=== PATIENT | female | born 1960 | race Caucasian/White ===

== ENCOUNTER → 2017-03-19 | Outpatient (CLI) | payer OTHER ==
[2017-03-19 18:28] LABS: THYROID STIMULATING HORMONE 0.451 uIu/ml (0.300-4.500)
== END | disposition home or self-care (01) ==
LOC: C.LABMFLN 13:55
PROVIDERS: ATTEND Internal Medicine Endocrinology, Diabetes & Metabolism
DX: E04.1 Nontoxic single thyroid nodule (principal); R53.83 Other fatigue; R61 Generalized hyperhidrosis

== ENCOUNTER → 2018-06-02 | Outpatient (CLI) | payer BC, OTHER | END | disposition home or self-care (01) | LOC: C.LABMFLN 13:24 | PROVIDERS: ATTEND Internal Medicine Endocrinology, Diabetes & Metabolism | DX: E04.1 Nontoxic single thyroid nodule (principal); R53.83 Other fatigue ==

== ENCOUNTER 2023-08-27 09:37 | Observation (INO) ==
--- NOTE | 2023-08-25 10:25 | Anesthesiology Consultation ---
Date of Service August 25, 2023 Assessment & Plan (1) Encounter for pre-operative examination: Plan - Per noise tester on 08/25/2023: No known infectious disease contacts, current infectious disease symptoms in past 10 days or COVID positive test result in the past 90 days. Chart Review Chart Review: Acceptable Risk for Surgery and Patient NOT seen in Pre Admission Testing History Surgery Operation Date: 08/27/23 12:35 Proposed Procedures p Left Thyroid Lobectomy with Isthmusectomy - Kelvin Baez, DO Height/Weight Height: 5 ft 1 in Weight: 65.771 kg Allergies Allergy/AdvReac Type Severity Reaction Status Date / Time Sulfa (Sulfonamide AdvReac Mild upset Verified 08/25/23 09:01 Antibiotics) stomach Medications Home Medications Medication Instructions Recorded Confirmed Last Taken multivitamin 1 tab PO DAILY 05/09/22 08/25/23 Unknown Progesterone in Oil 7 drp PO HS 08/25/23 08/25/23 Unknown Raw Desiccated Thyroid Gran. 2 cap PO DAILY 08/25/23 08/25/23 Unknown Past Medical History Medical History (Updated 08/25/23 @ 10:23 by Baylee Jenkins PA-C) Hemopneumothorax on right 03/2022, due to horse riding accident; also had multiple rib fractures (all healed currently)>hospitalized for 2 days in the ICU [facility]>no current issues Thyroid nodule Past Family History Family History (Updated 01/19/23 @ 15:01 by Linn Mooney RN) Sister Lung cancer Brother Cancer Mother Heart disease Past Surgical History Surgical History Hx of section x4 Hx of colonoscopy S/P wisdom tooth extraction Social History Smoking Status: Never smoker Do You Dip or Chew Tobacco: No Hx Alcohol Use: Yes Alcohol type: wine alcohol intake frequency: holidays/special occasions only Hx Substance Use: No substance use type: does not use Lab Results Anesthesia Preop Results Results Anesthesia Widget: WBC 8.88 K/ul (4.8-10.8) 08/24/23 Hgb 14.0 g/dl (12.0-16.0) 08/24/23 Hct 43.7 % (37.0-47.0) 08/24/23 Plt 287 K/uL (130-400) 08/24/23 Na 140 mmol/L (136-145) 08/24/23 K 3.8 mmol/L (3.5-5.1) 08/24/23 Cl 102 mmol/L (98-107) 08/24/23 CO2 31 mmol/L (21-32) 08/24/23 BUN 17 mg/dl (6-23) 08/24/23 Creat 0.70 mg/dl (0.6-1.2) 08/24/23 Glucose Level 92 mg/dl (70-99(Fasting)) 08/24/23 Testing Electrocardiogram Date: 08/24/23 NSR, rate 74 bpm
--- NOTE | 2023-08-27 07:06 | History & Physical Report ---
Date of Service August 27, 2023 Assessment & Plan (1) Thyroid nodule: Plan: We have discussed her options as well as risks multiple times. We rediscussed them today. Risks include bleeding infection hematoma DVT PE TX CVA injury to parathyroid glands injury to the recurrent laryngeal nerve etc. Following our discussion I answered her questions. We will proceed today with left thyroid lobectomy and isthmusectomy. She agrees with the plan. History of Present Illness Primary Care Provider: DO Francine Doe is here today for left thyroidectomy and isthmusectomy. She has an enlarging left-sided thyroid mass which is now becoming symptomatic. All of her biopsies have been benign however the most recent had a paucity of cells and is really indeterminate. Because it continues to enlarge she would prefer to have it removed which is reasonable. There is been no changes to her health status since I had seen her last in the office. Allergies Allergy/AdvReac Type Severity Reaction Status Date / Time Sulfa (Sulfonamide AdvReac Mild upset Verified 08/27/23 10:10 Antibiotics) stomach Home Medications Medication Instructions Recorded Confirmed Type multivitamin 1 tab PO DAILY 05/09/22 08/27/23 History Progesterone in Oil 7 drp PO HS 08/25/23 08/27/23 History Raw Desiccated Thyroid Gran. 2 cap PO DAILY 08/25/23 08/27/23 History Past Med/Surg History Medical History Hemopneumothorax on right 03/2022, due to horse riding accident; also had multiple rib fractures (all healed currently)>hospitalized for 2 days in the ICU [facility]>no current issues Thyroid nodule Surgical History Hx of section x4 Hx of colonoscopy S/P wisdom tooth extraction Family History Sister Lung cancer Brother Cancer Mother Heart disease Social History Smoking Status: Never smoker Second Hand Exposure: Yes (hx as child); Do You Dip or Chew Tobacco: No; Tobacco Cessation Education Requested by Patient: No Hx Alcohol Use: Yes Alcohol type: wine Hx Substance Use: No Preferred Language: Maori Communication Ability: Effective Assistant Site Manager Required: No Beliefs That Will Affect Care: None marital status: Current Living Situation: Spouse current occupational status: employed current occupation: Nurse How many Children do You have: 4 Other Information That Helps Us Care for You: No Feels Safe at Home: Yes Safety Concerns: Feels Safe At This Time Diet: regular during the past year weight has: increased > 10 lbs Assistive Devices: Glasses Assistive Devices Comment: reading glasses prn Review of Systems All systems reviewed & are unremarkable except as noted in HPI & below Physical Exam Constitutional: WD/WN, vitals as above no acute distress and not ill appearing Eyes: PERRL, conjunctivae normal, anicteric sclerae EOM intact bilaterally ENMT: external ear and nose normal, oropharynx normal Ears: no hearing impairment Neck: Visible and palpable enlarged left thyroid gland. Unchanged from prior. No palpable lymphadenopathy Respiratory: normal respiratory effort; no respiratory distress and does not use accessory muscles Cardiovascular: Rate/Rhythm: regular rate and regular rhythm Gastrointestinal (Abdomen): normal bowel sounds, soft, nontender, no hepatosplenomegaly Skin: no rashes, warm and dry Psychiatric: Orientation: alert, oriented x 3 and cooperative
[~2023-08-27 09:37] MED LIST: LR 15ML/HR IV SCH; ceFAZolin 2000MG 2,000 MG/15 ML SYR IV SCH
[2023-08-27] MEDS ORDERED: ATROPINE SULFATE 0.1 MG/ML 10ML SYR IV PRN ×2 (10:43→19:50)
[2023-08-27] MEDS ORDERED: HYDROmorphone INJ 1 MG/ML SYRINGE IV PRN (10:43)
[2023-08-27] MEDS ORDERED: ePHEDrine sulfate 50 MG/ML AMP IV PRN ×2 (10:43→19:50)
[2023-08-27] MEDS ORDERED: ONDANSETRON INJ 2 MG/ML 2 ML VIAL IV PRN ×3 (10:43→19:50)
[2023-08-27] MEDS ORDERED: PROPOFOL IV EMULSION 10 MG/ML 20 ML VIAL IV ONE ×3 (11:05→20:30)
[2023-08-27] MEDS ORDERED: DEXAMETHASONE SOD INJ 4 MG/ML VIAL ONE ×2 (11:05→19:40)
[2023-08-27] MEDS ORDERED: LIDOCAINE 2% 2 ML VIAL/AMP(20MG/ML) INFIL ONE ×2 (11:05→19:40)
[2023-08-27] MEDS ORDERED: ONDANSETRON INJ 2 MG/ML 2 ML VIAL ONE ×2 (11:05→19:40)
[2023-08-27] MEDS ORDERED: HYDROmorphone INJ 2 MG/ML SYR/VIAL ONE (11:05)
[2023-08-27] MEDS ORDERED: PHENYLEPHRINE HCL 10 MG/ML VIAL ONE (11:45)
[2023-08-27] MEDS ORDERED: fentaNYL citrate PF 100 MCG/2 ML VIAL ONE ×2 (13:04→19:41)
[2023-08-27] MEDS ORDERED: SUGAMMADEX SODIUM 200 MG/2 ML VIAL IV ONE (13:33)
--- NOTE | 2023-08-27 13:56 | Operative Report ---
PG Post Operative Report Pre & Post Diagnosis Operation Date: 08/27/23 11:15 Pre-Op Diagnosis: Thyroid Nodule Post-Op Diagnosis: Thyroid Nodule I identified the patient and participated in the time-out.: Yes Procedure Operation Date: 08/27/23 11:15 Actual Procedures p Left Thyroid Lobectomy with Isthmusectomy(Left) - Kelvin Baez DO Surgeon Kelvin Baez DO Supervisor Data Processing hailey case Estimated Blood Loss 200 Findings Consistent with Post-Op Diagnosis Specimens left thryoid lobe/isthmus Description of Procedure After informed consent was obtained the patient was taken to the operating room and placed in supine position. After successful intubation a rolled towel was placed between her shoulder blades. Her head was placed in slight extension. I made a curvilinear incision 2 fingerbreadths above the sternal notch with slight extension on the left side. This was carried down through the subcutaneous tissue as well as the platysma muscle. Blunt dissection as well as small amounts of cautery were used to create flaps superiorly as well as inferiorly. The anterior jugular veins were rather large and in our way and I therefore clipped and divided them. Next I opened the median raphae using cautery. We then used traction to pull the strap muscles laterally. I began by bluntly dissecting the left lobe of thyroid gland starting from lateral to medial. There was a fair amount of surface bleeding on the gland itself throughout the case which did affect our visualization. Nonetheless I was able to begin by isolating the inferior thyroid vessels. These were clipped with hemoclips and then divided with the LigaSure device. I used the same technique for the middle thyroid vein. We then continued to dissect the gland from lateral to medial. We were able to isolate the superior thyroid vessels as well and clipped and divided them also with ligasure. I was unable to visualize the superior laryng eal nerve. I was able to visualize what I believed was a left lower parathyroid gland and I was able to dissect this away from the specimen. We then continued from inferior to superior taking the thyroid gland off of the trachea/ligament of [place]. Eventually were able to get the entire gland out and sent to pathology. I did include the isthmus which I divided using a LigaSure device. We then held pressure in the wound bed for several minutes. Several small bleeding points we controlled using cautery. At the end of the procedure there was adequate hemostasis. I did place Laura powder on all the raw surfaces. I placed a 10 round drain into the wound bed as well and brought it out through a separate stab incision and sutured it to the skin. I then loosely reapproximated the strap muscles using 2-0 Vicryl. Soft tissue was irrigated. The platysma was reapproximated using 3-0 Vicryl and skin was closed using 4-0 Monocryl. Some Marcaine with epinephrine was injected around the incision for postoperative analgesia. Benzoin Steri-Strips gauze and tape were used as a dressing. The patient was awakened extubated and transferred to recovery in stable condition. My nurse practitioner was present for the entire case was instrumental in assisting with providing exposure, assisting with the gland removal, wound closure and dressing placement. I attest to the content of the Intraoperative Record and any orders documented therein. Any exceptions are noted below.
--- NOTE | 2023-08-27 15:06 | Anesthesiology Progress Note ---
Date of Service August 27, 2023 Anesthesia Post Procedure Vital Signs Vital Signs: Temp Pulse Pulse Resp BP Pulse Ox O2 Del Method 08/27/23 14:55 36.5 C 74 13 132/76 98 Nasal Cannula 08/27/23 14:45 76 12 128/73 95 Nasal Cannula 08/27/23 14:35 83 13 129/77 92 Room Air 08/27/23 14:25 78 12 134/85 98 Oxymask 08/27/23 14:19 36 C L 79 14 147/82 H 98 Oxymask 08/27/23 10:05 36.5 C 79 20 123/66 98 Room Air O2 Flow Rate 08/27/23 14:55 2 08/27/23 14:45 2 08/27/23 14:35 08/27/23 14:25 6 08/27/23 14:19 6 08/27/23 10:05 Transfer of Care Handoff Completed per policy Notes Mental Status: alert / awake / arousable Patient Amnestic to Procedure: Yes Nausea / Vomiting: adequately controlled Pain: adequately controlled Airway Patency, RR, SpO2: stable & adequate BP & HR: stable & adequate Hydration State: stable & adequate Anesthetic Complications: no major complications apparent and Pt Satisfied with anesthetic care
[2023-08-27] MEDS ORDERED: oxyCODONE/ACETAMINOPHEN 5mg/325mg TAB PO PRN ×2 (15:33)
[2023-08-27] MEDS ORDERED: MoRPHine SULFATE 4 MG/ML 1 ML CARP\\VIAL IV PRN (15:33)
[2023-08-27] MEDS ORDERED: MoRPHine SULFATE 2 MG/ML CARP IV PRN (15:33)
[2023-08-27] MEDS ORDERED: ACETAMINOPHEN 325 MG TAB PO PRN (15:33)
[2023-08-27] MEDS: LACTATED RINGER'S 1,000 ML IV SCH ×2 (16:13→22:09)
--- NOTE | 2023-08-27 19:18 | History & Physical Bridge Note ---
Date of Service August 27, 2023 History & Physical Bridge Note I have examined the patient, reviewed the History & Physical and in the interval since the performance of the History & Physical I have noted the following changes of clinical significance: called by RN for increased neck swelling and pt reporting some increased effort with swallowing at bedside. pt evaluated. increase echymosis and swelling since I had seen her several hours ago. drain does not seem to be working. discussed options. recommend re- eval in OR to r/o bleeding....washout likely hematoma and replace with better drain. discussed options/risks. pt agreeable.
[2023-08-27] MEDS ORDERED: BUPIVACAINE/EPINEPHRINE 0.5% MPF 1:200,000 30 ML VIAL ONE (19:22)
[2023-08-27] MEDS ORDERED: THROMBIN FOR SOLN 20000 UNIT KIT ONE (19:32)
[2023-08-27] MEDS ORDERED: SUCCINYLCHOLINE CHLORIDE 20 MG/ML 10 ML VIAL IV ONE (19:40)
[2023-08-27] MEDS ORDERED: ROCURONIUM BROMIDE 10 MG/ML 5 ML VIAL IV ONE (19:40)
[2023-08-27] MEDS ORDERED: fentaNYL citrate PF 100 MCG/2 ML VIAL IV PRN (19:50)
--- NOTE | 2023-08-27 19:50 | Anesthesiology Consultation ---
Date of Service August 27, 2023 Assessment & Plan Chart Review Chart Review: Acceptable Risk for Surgery Consults Requested none ASA ASA2E Proposed Anesthesia Anesthesia Type: General Risk / Benefits Reviewed With: PT / POA / Parent / Guardian, Accepts Plan and Informed Consent Obtained History Surgery Operation Date: 08/27/23 11:15 Proposed Procedures p Left Thyroid Lobectomy with Isthmusectomy - Kelvin Baez DO Operation Date: 08/27/23 20:00 Proposed Procedures p Evacuation of Hematoma - Kelvin Baez DO Height/Weight Height: 5 ft 1 in Weight: 68.1 kg Allergies Allergy/AdvReac Type Severity Reaction Status Date / Time Sulfa (Sulfonamide AdvReac Mild upset Verified 08/27/23 10:10 Antibiotics) stomach Medications Home Medications Medication Instructions Recorded Confirmed Last Taken multivitamin 1 tab PO DAILY 05/09/22 08/27/23 08/20/23 08:00 Progesterone in Oil 7 drp PO HS 08/25/23 08/27/23 08/24/23 21:00 Raw Desiccated Thyroid Gran. 2 cap PO DAILY 08/25/23 08/27/23 08/24/23 08:00 Active Medications Generic Name Dose Route Start Last Admin Trade Name Freq PRN Reason Stop Dose Admin Lactated Ringer's 1,000 mls @ 80 mls/hr 08/27/23 15:33 08/27/23 16:13 Lr IV 09/26/23 15:32 80 mls/hr .[id number] CEM Administration Ondansetron HCl 4 mg 08/27/23 15:33 08/27/23 19:06 Ondansetron Inj 2 Mg/Ml 2 Ml Vial IV 09/26/23 15:32 4 mg Q4H PRN Administration Nausea And Vomiting NPO Date Last Intake of Fluids: 08/27/23 Time Last Intake of Fluids: 16:30 Date Last Intake of Solids: 08/27/23 Time Last Intake of Solids: 16:30 Past Medical History Medical History Hemopneumothorax on right 03/2022, due to horse riding accident; also had multiple rib fractures (all healed currently)>hospitalized for [address] [facility] [place]>no current issues Thyroid nodule Exercise / Class Metabolic Activity 1 > 8 Run/Swim/Ski/Tennis Past Family History Family History Sister Lung cancer Brother Cancer Mother Heart disease Past Surgical History Surgical History Hx of section x4 Hx of colonoscopy S/P wisdom tooth extraction Past Anesthesia History No Hx of Anesthesia Complications and No Family Hx of Anesthesia Complications History of PONV No Hx of PONV and No Hx of Motion Sickness Social History Smoking Status: Never smoker Do You Dip or Chew Tobacco: No Hx Alcohol Use: Yes Alcohol type: wine alcohol intake frequency: holidays/special occasions only Hx Substance Use: No substance use type: does not use Physical Exam Vital Signs Last Vital Signs Temp 97.9 F 08/27/23 18:44 Pulse 84 08/27/23 18:44 Resp 16 08/27/23 18:44 BP 133/79 08/27/23 18:44 Pulse Ox 94 08/27/23 18:44 O2 Del Method Room Air 08/27/23 18:44 O2 Flow Rate 2 08/27/23 16:31 ENMT Mouth: no dentition abnormality Thyromental Distance: > or= 3.5 Finger Breadths Mallampati Class: II Neck normal visual inspection Respiratory normal respiratory effort Auscultation: lungs clear to auscultation bilaterally Cardiovascular Rate/Rhythm: regular rate and regular rhythm Testing Electrocardiogram Date: 08/24/23 NSR, rate 74 bpm
[2023-08-27] MEDS ORDERED: TISSEEL FIBRIN SEALANT 4ML TOP ONE (20:26)
--- NOTE | 2023-08-27 21:00 | Operative Report ---
PG Post Operative Report Pre & Post Diagnosis Operation Date: 08/27/23 20:00 Pre-Op Diagnosis: Post surgical hematoma Post-Op Diagnosis: Post surgical hematoma I identified the patient and participated in the time-out.: Yes Procedure Operation Date: 08/27/23 20:00 Actual Procedures p Evacuation of Hematoma, Wound exploration(Not Applicable) - Kelvin ramírez DO Surgeon Kelvin Baez DO Urogynaecologist hailey case Estimated Blood Loss 25 Findings Consistent with Post-Op Diagnosis Specimens none Description of Procedure After informed consent was obtained the patient was taken to the operating room and placed in supine position. After successful intubation the dressing and drain were removed. The prior incision and neck were sterilely prepped and draped in usual fashion. I began by taking out the skin sutures with 11 blade scalpel. I then opened the incision. I divided the Vicryl stitches holding the strap muscles. This revealed several small hematomas. There did not appear to be any major active bleeding. As I evacuated the hematoma as there was some small amount of oozing from the anterior trachea as well as the undersurface of the strap muscles. After evacuating the hematoma I was able to use small amounts of cautery to control several small bleeding points. We thoroughly irrigated the wound. There was no other active bleeding. I used Tisseel sealant on all the raw surfaces. We held pressure again and then monitored the wound for several minutes and again there was no active bleeding. A 15 Ug[place] round MAITE drain was brought in through the previous stab incision and placed into the wound bed. The strap muscles were loosely reapproximated using 2-0 Vicryl. Platysma muscle was closed with 3-0 Vicryl in a simple interrupted fashion. Skin was closed using 5-0 Monocryl in a running subcuticular fashion. Benzoin Steri-Strips and OpSite dressing were used. The drain was secured using 3-0 nylon. The patient was awakened extubated and transferred recovery in stable condition. I attest to the content of the Intraoperative Record and any orders documented therein. Any exceptions are noted below.
--- NOTE | 2023-08-27 21:56 | Anesthesiology Progress Note ---
Date of Service August 27, 2023 Anesthesia Post Procedure Vital Signs Vital Signs: Temp Pulse Pulse Resp BP Pulse Ox Pulse Ox 08/27/23 21:30 97.2 F L 87 17 125/70 99 08/27/23 21:20 88 18 121/82 99 08/27/23 21:10 83 17 128/67 99 08/27/23 21:04 97.2 F L 84 18 117/65 99 08/27/23 18:44 97.9 F 84 16 133/79 94 08/27/23 17:29 98.1 F 88 16 121/76 94 08/27/23 16:31 97.9 F 74 16 123/72 96 08/27/23 16:00 97.3 F L 80 16 127/79 96 08/27/23 15:41 08/27/23 15:40 97 08/27/23 15:30 97.5 F L 77 14 127/78 97 08/27/23 15:05 76 14 137/78 97 08/27/23 14:55 97.7 F 74 13 132/76 98 08/27/23 14:45 76 12 128/73 95 08/27/23 14:35 83 13 129/77 92 08/27/23 14:25 78 12 134/85 98 08/27/23 14:19 96.8 F L 79 14 147/82 H 98 08/27/23 10:05 97.7 F 79 20 123/66 98 O2 Del Method O2 Del Method O2 Flow Rate O2 Flow Rate 08/27/23 21:30 Nasal Cannula 2 08/27/23 21:20 Nasal Cannula 2 08/27/23 21:10 Nasal Cannula 2 08/27/23 21:04 Nasal Cannula 2 08/27/23 18:44 Room Air 08/27/23 17:29 Room Air 08/27/23 16:31 Nasal Cannula 2 08/27/23 16:00 Nasal Cannula 1 08/27/23 15:41 Nasal Cannula 2 08/27/23 15:40 Nasal Cannula 2 08/27/23 15:30 Nasal Cannula 2 08/27/23 15:05 Nasal Cannula 2 08/27/23 14:55 Nasal Cannula 2 08/27/23 14:45 Nasal Cannula 2 08/27/23 14:35 Room Air 08/27/23 14:25 Oxymask 6 08/27/23 14:19 Oxymask 6 08/27/23 10:05 Room Air Transfer of Care Handoff Completed per policy Notes Mental Status: alert / awake / arousable and participated in evaluation Patient Amnestic to Procedure: Yes Nausea / Vomiting: adequately controlled Pain: adequately controlled Airway Patency, RR, SpO2: stable & adequate BP & HR: stable & adequate Hydration State: stable & adequate Anesthetic Complications: no major complications apparent and Pt Satisfied with anesthetic care
[2023-08-28 06:48] LABS: Basophils # (auto) 0.01 K/uL (0.00-0.20); Basophils % (auto) 0.1 %; Hematocrit (blood only) 33.4 % (37.0-47.0); Hemoglobin 11.2 g/dl (12.0-16.0); Immature Granulocytes # (auto) 0.09 K/uL (0.01-0.20); Immature Granulocytes % (auto) 0.6 %; Lymphocytes % (auto) 10.4 %; Mean Corpuscular Hemoglobin 29.2 pg (25.0-34.0); Mean Corpuscular Hgb Conc 33.5 g/dL (32.0-36.0); Mean Corpuscular Volume 87.2 fL (80.0-100.0); Mean Platelet Volume 9.7 fL (9.4-12.4); Monocytes # (auto) 0.78 K/uL (0.11-0.59); Neutrophils # (auto) 12.97 K/uL (1.40-6.50); Neutrophils % (auto) 83.9 %; Platelet Count 245 K/uL (130-400); RDW Coefficient of Variation 12.5 % (11.5-14.5); RDW Standard Deviation 39.8 fL (36.4-46.3); Red Blood Count 3.83 M/uL (4.20-5.40); White Blood Count 15.45 K/ul (4.8-10.8)
[2023-08-28 07:12] LABS: Albumin Globulin Ratio 1.7 (0.9-2); Albumin Level 3.9 gm/dl (3.4-5.0); BUN Creatinine Ratio 21.3 (10-20); Bilirubin,Total 0.5 mg/dl (0.2-1.0); Calcium 8.6 mg/dl (8.6-10.3); Est GFR (African American) 123.6 ml/min; Est GFR (Non-African American) 106.6 ml/min; Globulin 2.3 gm/dl (2.5-4.0); Potassium 3.8 mmol/L (3.5-5.1); Total Protein 6.2 gm/dl (6.0-8.3)
--- NOTE | 2023-08-28 08:07 | Surgery Progress Note ---
Date of Service August 28, 2023 Assessment & Plan (1) Thyroid nodule: Plan: Doing well. Okay for discharge. We will keep her MAITE drain and I will take it out early next week. Admission and Anticipated Discharge Date Admission Date: August 27, 2023 Subjective Patient seen. She is feeling much better than she did last night. No diffic ulty swallowing or breathing and her voice quality is normal. Physical Exam Physical Exam: MAITE with small amount of serosanguineous discharge. The incision itself looks good. Much less swelling than last night Results & Data Vital Signs (Past 12 Hours) Vital Signs Temp Pulse Pulse Resp BP Pulse Ox O2 Del Method 08/28/23 07:20 36.6 C 79 16 109/63 95 Nasal Cannula 08/28/23 05:15 75 93 Nasal Cannula 08/28/23 05:35 36.8 C 81 18 111/64 93 Nasal Cannula 08/28/23 03:15 74 94 Nasal Cannula 08/28/23 01:04 36.7 C 82 18 113/66 91 Room Air 08/27/23 22:00 Nasal Cannula 08/28/23 00:00 36.6 C 81 16 112/68 92 Room Air 08/27/23 22:25 36.4 C L 78 16 121/74 96 Nasal Cannula 08/27/23 23:01 36.3 C L 77 18 124/75 96 Nasal Cannula 08/27/23 21:55 36.7 C 86 18 113/70 98 Nasal Cannula 08/27/23 21:30 36.2 C L 87 17 125/70 99 Nasal Cannula 08/27/23 21:20 88 18 121/82 99 Nasal Cannula 08/27/23 21:10 83 17 128/67 99 Nasal Cannula 08/27/23 21:04 36.2 C L 84 18 117/65 99 Nasal Cannula O2 Flow Rate 08/28/23 07:20 2 08/28/23 05:15 2 08/28/23 05:35 2 08/28/23 03:15 2 08/28/23 01:04 08/27/23 22:00 4 08/28/23 00:00 08/27/23 22:25 2 08/27/23 23:01 2 08/27/23 21:55 08/27/23 21:30 2 08/27/23 21:20 2 08/27/23 21:10 2 08/27/23 21:04 2 PG Care Time/CCT Total # of Minutes Spent Total Time Spent with Patient: Total time spent is greater than 50% in coordination of care (as documented) at patient's floor/unit and/or counseling patient: Coding Level of Care Code 02195 Post Operative Follow-Up Diagnoses Thyroid nodule E04.1
[2023-08-28] MEDS ORDERED: MULTIVITAMIN TAB PO SCH (09:00)
[2023-08-28] MEDS ORDERED: BUPIVACAINE/EPINEPHRINE 0.5% MPF 1:200,000 30 ML VIAL INFIL ONE (10:14)
--- NOTE | 2023-09-01 14:22 | Discharge Summary ---
Date of Service August 28, 2023 Admission HPI Per Admitting Provider Francine is here today for left thyroidectomy and isthmusectomy. She has an enlarging left-sided thyroid mass which is now becoming symptomatic. All of her biopsies have been benign however the most recent had a paucity of cells and is really indeterminate. Because it continues to enlarge she would prefer to have it removed which is reasonable. There is been no changes to her health status since I had seen her last in the office. Principal Diagnosis left thyroidectomy and isthmusectomy Discharge Exam MAITE with small amount of serosanguineous discharge. The incision itself looks good. Much less swelling than last night Discharge Data Allergies Allergy/AdvReac Type Severity Reaction Status Date / Time Sulfa (Sulfonamide AdvReac Mild upset Verified 08/29/23 16:43 Antibiotics) stomach Procedures Performed Operation Date: 08/27/23 20:00 Actual Procedures p Evacuation of Hematoma, Wound exploration(Not Applicable) - Kelvin Baez, Operation date 08/26/23 11:15 Left Thyroid Lobectomy with Isthmusectomy(Left)- Kelvin Baez, DO Hospital Course (1) History of lobectomy of thyroid: You underwent an elective left lobectomy of the thyroid on 08/27/23 and had MAITE drain placed. You were admitted to the hospital for observation for one night. You recovered in PACU and were taken to the floor (2) History of evacuation of hematoma: You underwent an elective left lobectomy of the thyroid on 08/27/23 and had MAITE drain placed. You were admitted to the hospital for observation for one night. Later in the evening you developed increase in neck swelling and reported a difference in your ability to swallow. You remained stable, and were taking back into the OR for re-exploration of post surgical incision, hematoma evacuation and hemostasis. A larger trinh surgical drain was placed. You were then transferred back to the surgical floor for monitoring. You were discharged in stable condition on 08/28/23 with your MAITE drain intact. You were instructed to follow up with Dr. Baez as an o/p in one week. Total Time Total Time Spent Total Time Spent (In Minutes): 20 Discharge Plan Discharge Items Patient Disposition: Home - Self-Care Reason For Visit: Thyroid Nodule Discharge Diagnosis: left thyroidectomy Activity: Per Instructions section Lifting: No more than 10 pounds Bathing Comment: may shower starting 08/28/23; no soaking in tubs/pools x 2 weeks Exercise/Sports: Wait until after follow-up appointment Non-emergency contact: Surgeon Call non-emergency contact if: you have any medication questions, your pain is worsening, your pain is unusual for you, you have a fever, your temperature is above 101.5, your wound has increased redness, your wound has increased drainage and your wound pain has increased Follow-up/Referrals: Kelvin Baez DO [Surgeon] - (Please call to schedule follow up in clinic within 1-2 weeks) Angelo Costa DO [Primary Care Provider] - Diet: Regular Addtl Attending Provider Instructions: You have skin glue over your incisions called dermabond. you may shower with this on. It will tend to dissolve and fall off within a couple weeks. Do not pick at the skin glue MAITE drain care as instructed. will be removed next week in the office Pending Studies at Discharge: Yes Studies:: surgical pathology Stand-Alone Forms: [facility], Pain - Opioid Pain Management Medications and DC Order Prescriptions: Continued multivitamin Tablet 1 tab PO DAILY Progesterone in Oil 7 drp PO HS Raw Desiccated Thyroid Gran. 2 cap PO DAILY Discharge Orders: Discharge Order (Routine); Ordered 08/28/23 Ordered By: Kelvin Castillo/Other Patient Handouts: DVT Post Op Prevention Admission Data Admit Date/Time: 08/27/23 14:05 Attending Provider: Kelvin Baez Admit Provider: Kelvin Baez Primary Care Provider: Angelo Costa Other Interventions: Discharge Summary Assessment (RN) Last Done: 08/28/23 08:45 Coding Level of Care Code 66167 IN/OBS DISCH 30 MIN/LESS Diagnoses History of lobectomy of thyroid Z90.09 History of evacuation of hematoma Z98.890
== END 2023-08-28 10:15 | disposition home or self-care (01) ==
LOC: ASU 09:37 → 3E 09:37
DX: Z88.2 Allergy status to sulfonamides; D34 Benign neoplasm of thyroid gland; E04.1 Nontoxic single thyroid nodule

== ENCOUNTER 2023-08-29 12:35 | Observation (INO) ==
[2023-08-29 13:37] LABS: Basophils # (auto) 0.05 K/uL (0.00-0.20); Basophils % (auto) 0.4 %; Eosinophils # (auto) 0.06 K/uL (0.00-0.50); Eosinophils % (auto) 0.5 %; Hematocrit (blood only) 34.5 % (37.0-47.0); Hemoglobin 11.3 g/dl (12.0-16.0); Immature Granulocytes # (auto) 0.07 K/uL (0.01-0.20); Immature Granulocytes % (auto) 0.5 %; Lymphocytes # (auto) 3.98 K/uL (1.20-3.40); Lymphocytes % (auto) 31.2 %; Mean Corpuscular Hemoglobin 29.8 pg (25.0-34.0); Mean Corpuscular Hgb Conc 32.8 g/dL (32.0-36.0); Mean Platelet Volume 9.4 fL (9.4-12.4); Monocytes # (auto) 1.02 K/uL (0.11-0.59); Neutrophils # (auto) 7.57 K/uL (1.40-6.50); Neutrophils % (auto) 59.4 %; Platelet Count 253 K/uL (130-400); RDW Coefficient of Variation 12.9 % (11.5-14.5); RDW Standard Deviation 43.1 fL (36.4-46.3); Red Blood Count 3.79 M/uL (4.20-5.40); White Blood Count 12.75 K/ul (4.8-10.8)
[2023-08-29 13:45] LABS: BUN Creatinine Ratio 31.9 (10-20); Calcium 8.9 mg/dl (8.6-10.3); Creatinine Clr Calc Pharmacy 111.4 ml/min; Est GFR (African American) 123.6 ml/min; Est GFR (Non-African American) 106.6 ml/min; Potassium 3.8 mmol/L (3.5-5.1)
[2023-08-29 13:56] LABS: INR 0.9 (0.9-1.1); Partial Thromboplastin Ratio 0.8; Partial Thromboplastin Time 23.1 Seconds (21.0-31.0); Prothrombin Time 10.1 Seconds (9.0-12.0)
--- NOTE | 2023-08-29 14:44 | Ultrasound Report ---
US soft tissue neck CLINICAL HISTORY: Status post recent thyroidectomy. Evaluate for hematoma. COMPARISON STUDY: Thyroid ultrasound February 29, 2016. TECHNIQUE: Sonography of the thyroidectomy bed was performed. FINDINGS: There is a complex fluid collection within the left thyroidectomy bed which measures approx imately 3.7 x 2 cm. This is mixed echogenicity. No additional fluid collections are identified. No en larged nodes are identified by sonography. IMPRESSION: Complex left thyroidectomy bed fluid collection which measures approximately 3.7 x 2 cm. This favors a small hematoma. ACT 112: Negative or not required by law. Electronically signed by: Manish Lloyd M.D. 08/29/2023 2:42 PM
--- NOTE | 2023-08-29 15:45 | Emergency Department Note ---
History of Present Illness General Chief complaint: Illness Stated complaint: DIFF SWALLOWING, SWELLING NECK S/P THYROID REMOVAL Time Seen by Provider: 08/29/23 12:50 History of Present Illness Provider complaint: Neck pain Maximum Pain Intensity: 5 63-year-old female presents emergency department for neck pain. Patient reports she was operated on by Dr. Juarez in 2 days ago and when is been having increasing neck pain. Patient states she was post have a drain in her neck but it fell out. She denies any fever. Patient reports difficulty swallowing. No difficulty breathing. Home Medications Medication Instructions Recorded Confirmed Type multivitamin 1 tab PO DAILY 05/09/22 08/27/23 History Progesterone in Oil 7 drp PO HS 08/25/23 08/27/23 History Raw Desiccated Thyroid Gran. 2 cap PO DAILY 08/25/23 08/27/23 History oxycodone-acetaminophen 5 mg-325 1 tab PO Q8H PRN pain #10 tabs 08/28/23 Rx mg tablet Allergies Allergy/AdvReac Type Severity Reaction Status Date / Time Sulfa (Sulfonamide AdvReac Mild upset Verified 08/27/23 10:10 Antibiotics) stomach Past Med/Surg History Medical History Hemopneumothorax on right 03/2022, due to horse riding accident; also had multiple rib fractures (all healed currently)>hospitalized for 2 days in the ICU [facility]>no current issues Thyroid nodule Surgical History History of evacuation of hematoma (08/27/23) Evacuation of Hematoma, Wound exploration(Not Applicable) - Kelvin Baez, History of lobectomy of thyroid (08/27/23) Left Thyroid Lobectomy with Isthmusectomy(Left) - Kelvin Baez DO Hx of section x4 Hx of colonoscopy S/P wisdom tooth extraction Family History Sister Lung cancer Brother Cancer Mother Heart disease Social History Smoking Status: Never smoker Second Hand Exposure: Yes (hx as child); Do You Dip or Chew Tobacco: No; Hx Alcohol Use: Yes Alcohol type: wine Hx Substance Use: No Preferred Language: Georgian Communication Ability: Effective 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 Beliefs That Will Affect Care: None marital status: Current Living Situation: Spouse current occupational status: employed current occupation: Nurse How many Children do You have: 4 Feels Safe at Home: Yes Diet: regular during the past year weight has: increased > 10 lbs Assistive Devices: None Physical Exam Vital Signs Vital Signs - 24 hr 08/29/23 12:42 08/29/23 13:11 08/29/23 15:07 Temperature 36.6 C Temperature Source Temporal Artery Scan Pulse Rate 76 Pulse Rate [Finger] 74 Respiratory Rate 20 16 Respiratory Effort / Characteristics Non-Labored Respiratory Depth Normal Blood Pressure 123/74 Blood Pressure [Left Arm] 122/67 Blood Pressure Mean 90 Blood Pressure Mean [Left Arm] 85 Pulse Oximetry 96 98 94 Oxygen Delivery Method Room Air Room Air Room Air Sepsis Recent Fever Within 48 Hours No Sepsis New/Unexplained Change in Mental Status N/A Sepsis Action Taken by Nursing No Action Required Physical Exam GENERAL: She is oriented to person, place, and time. She appears well-developed and well-nourished. She does not appear distressed. HENT: Exam performed. -Head: Normocephalic and atraumatic. -Right Ear: External ear normal. No mastoid erythema -Left Ear: External ear normal. No mastoid erythema -Mouth/Throat: The oropharynx is clear and moist. No trismus in the jaw. No dental abscesses or uvula swelling. No oropharyngeal exudate or tonsillar abscesses. EYES: Conjunctivae and EOM are normal. Pupils are equal, round, and reactive to light. Right eye exhibits no discharge. Left eye exhibits no discharge. No scl eral icterus. NECK: Normal range of motion. Neck supple. No JVD present. No spinous process tenderness present. No carotid bruit present. No rigidity. Surgical incision is clean and dry with no surrounding erythema bleeding or discharge. CV: Normal rate, regular rhythm, normal heart sounds and intact distal pulses. There is no peripheral edema. Palpable radial pulses bue. PULM/CHEST: Effort normal and breath sounds normal. No respiratory distress. No stridor. She has no wheezes. She has no rales. -Chest Wall: She exhibits no tenderness. NEURO: She is alert and oriented to person, place, and time. She has normal strength. No cranial nerve deficit or sensory deficit. Coordination and gait normal. GCS eye subscore is 4. GCS verbal subscore is 5. GCS motor subscore is 6. Cerebellar tests wnl. SKIN: Skin is warm and dry. She is not diaphoretic. PSYCH: She has a normal mood and affect. Behavior is normal. Judgment and thought content normal. Course Course 1250: The patient was evaluated in room B5. A complete history and physical exam was performed 1301: Spoke with general surgery on-call Dr. Pelaez who states to get an ultrasound Soft tissue neck and he will be down to evaluate the patient. 1530: Vital signs stable. Dr. Pelaez came and evaluated the patient at bedside. Ultrasound shows a postoperative hematoma. He states admit the patient to his service. Medical Decision Making Laboratory Data Attestation: I reviewed the patient's lab results. 08/29/23 12:50 08/29/23 12:50 Lab Results 08/29/23 08/29/23 08/29/23 Range/Units 12:50 12:50 12:50 WBC 12.75 H (4.8-10.8) K/ul RBC 3.79 L (4.20-5.40) M/uL Hgb 11.3 L (12.0-16.0) g/dl Hct 34.5 L (37.0-47.0) % MCV 91.0 (80.0-100.0) fL MCH 29.8 (25.0-34.0) pg MCHC 32.8 (32.0-36.0) g/dL RDW Std Deviation 43.1 (36.4-46.3) fL RDW Coeff of Zuhair 12.9 (11.5-14.5) % Plt Count 253 (130-400) K/uL MPV 9.4 (9.4-12.4) fL Immature Gran % (Auto) 0.5 % Neut % (Auto) 59.4 % Lymph % (Auto) 31.2 % [place] % (Auto) 8.0 % Eos % (Auto) 0.5 % Baso % (Auto) 0.4 % Neut # (Auto) 7.57 H (1.40-6.50) K/uL Lymph # (Auto) 3.98 H (1.20-3.40) K/uL [place] # (Auto) 1.02 H (0.11-0.59) K/uL Eos # (Auto) 0.06 (0.00-0.50) K/uL Baso # (Auto) 0.05 (0.00-0.20) K/uL Immature Gran # (Auto) 0.07 (0.01-0.20) K/uL PT 10.1 (9.0-12.0) Seconds INR 0.9 (0.9-1.1) APTT 23.1 (21.0-31.0) Seconds PTT Ratio 0.8 Sodium 140 (136-145) mmol/L Potassium 3.8 (3.5-5.1) mmol/L Chloride 104 (98-107) mmol/L Carbon Dioxide 30 (21-32) mmol/L Anion Gap 6 (3-11) BUN 15 (6-23) mg/dl Creatinine 0.47 L (0.6-1.2) mg/dl Est Cr Clr Drug Dosing 111.4 ml/min Est GFR ( Amer) 123.6 ml/min Est GFR (Non-Af Amer) 106.6 ml/min BUN/Creatinine Ratio 31.9 H (10-20) Glucose 90 (70-99(Fasting)) mg/dl Calcium 8.9 (8.6-10.3) mg/dl Imaging Data Radiologist's Impression: Soft Tissue Ultrasound 08/29/23 13:01 US soft tissue neck CLINICAL HISTORY: Status post recent thyroidectomy. Evaluate for hematoma. COMPARISON STUDY: Thyroid ultrasound February 29, 2016. TECHNIQUE: Sonography of the thyroidectomy bed was performed. FINDINGS: There is a complex fluid collection within the left thyroidectomy bed which measures approximately 3.7 x 2 cm. This is mixed echogenicity. No additional fluid collections are identified. No enlarged nodes are identified by sonography. IMPRESSION: Complex left thyroidectomy bed fluid collection which measures approximately 3.7 x 2 cm. This favors a small hematoma. ACT 112: Negative or not required by law. Electronically signed by: Manish Lloyd M.D. 08/29/2023 2:42 PM MDM Narrative 1250: The patient was evaluated in room B5. A complete history and physical exam was performed 1301: Spoke with general surgery on-call Dr. Pelaez who states to get an ultrasound Soft tissue neck and he will be down to evaluate the patient. 1530: Vital signs stable. Dr. Pelaez came and evaluated the patient at bedside. Ultrasound shows a postoperative hematoma. He states admit the patient to his service. Impression & Plan Post-operative complication Discharge Plan Visit Data Chief Complaint: Illness Stated Complaint: DIFF SWALLOWING, SWELLING NECK S/P THYROID REMOVAL ED Provider: Dick Perez Discharge Problem: Post-operative complication Patient Disposition: Admitted As Inpatient Forms Stand Alone Forms: [facility] Prescriptions Prescriptions: No Action multivitamin Tablet 1 tab PO DAILY Progesterone in Oil 7 drp PO HS Raw Desiccated Thyroid Gran. 2 cap PO DAILY oxycodone-acetaminophen 5-325 mg tablet 1 tab PO Q8H PRN (Reason: pain) Qty: 10 0RF Referrals Referrals: Angelo Costa DO [Primary Care Provider] -
--- NOTE | 2023-08-29 15:59 | History & Physical Report ---
Date of Service August 29, 2023 Assessment & Plan (1) History of evacuation of hematoma: Plan: 63-year-old female status post left hemithyroidectomy complicated by early postoperative hematoma status post washout, now with small fluid collection that could represent Tisseel versus hematoma. Her symptoms are somewhat mild in the swelling is not very impressive on exam. There is no localized compression shown on ultrasound. At this point I do not think this warrants return trip to the operating room. We will admit her for observation and if she was doing well tomorrow she may be discharged. Admit to observation Clear liquid diet Continue to monitor closely Patient aware that if symptoms worsen she may return trip to the operating room for evacuation of hematoma. (2) History of lobectomy of thyroid: History of Present Illness Chief Complaint: Swelling at surgical site Primary Care Provider: Angelo Costa DO 63-year-old female status post left hemithyroidectomy by Dr. Baez on 27 August 2023, taken back on day of surgery for symptomatic hematoma, here for swelling at her surgical site and difficulty swallowing. She was observed overnight and discharged on 28 August. Prior to discharge her surgical drain was accidentally removed. She was doing well and was discharged to home. This morning she woke and felt increasing tightness in her surgical bed along the left side of her throat as well as some difficulty swallowing. She also notices a slight change in her voice. She denies any difficulty breathing. She is not having significant pain. Since this morning she actually feels somewhat better. She is not on any blood thinners. No other issues Allergies Allergy/AdvReac Type Severity Reaction Status Date / Time Sulfa (Sulfonamide AdvReac Mild upset Verified 08/27/23 10:10 Antibiotics) stomach Home Medications Medication Instructions Recorded Confirmed Type multivitamin 1 tab PO DAILY 05/09/22 08/27/23 History Progesterone in Oil 7 drp PO HS 08/25/23 08/27/23 History Raw Desiccated Thyroid Gran. 2 cap PO DAILY 08/25/23 08/27/23 History oxycodone-acetaminophen 5 mg-325 1 tab PO Q8H PRN pain #10 tabs 08/28/23 Rx mg tablet Past Med/Surg History Medical History (Updated 08/29/23 @ 15:53 by Dick Perez MD) Hemopneumothorax on right 03/2022, due to horse riding accident; also had multiple rib fractures (all healed currently)>hospitalized for 2 days in the ICU [facility]>no current issues Thyroid nodule Surgical History (Updated 08/29/23 @ 15:57 by George Pelaez DO, FACS) History of evacuation of hematoma (08/27/23) Evacuation of Hematoma, Wound exploration(Not Applicable) - Kelvin Baez DO History of lobectomy of thyroid (08/27/23) Left Thyroid Lobectomy with Isthmusectomy(Left) - Kelvin Baez DO Hx of section x4 Hx of colonoscopy S/P wisdom tooth extraction Family History Sister Lung cancer Brother Cancer Mother Heart disease Social History Smoking Status: Never smoker Second Hand Exposure: Yes (hx as child); Do You Dip or Chew Tobacco: No; Hx Alcohol Use: Yes Alcohol type: wine Hx Substance Use: No Preferred Language: Spanish Communication Ability: Effective 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 No significant bruising. Slight fullness along the left side of the trachea. Trachea is midline. Mild tenderness. Voice with good phonation. Respiratory: normal respiratory effort, lungs clear to auscultation Cardiovascular: RRR, no murmur, no edema Results & Data Results & Data Vital Signs (Past 12 Hours) Vital Signs Temp Pulse Pulse Resp BP BP Pulse Ox 08/29/23 15:07 74 16 122/67 94 08/29/23 13:11 98 08/29/23 12:42 36.6 C 76 20 123/74 96 O2 Del Method 08/29/23 15:07 Room Air 08/29/23 13:11 Room Air 08/29/23 12:42 Room Air Laboratory Results Laboratory Results - last 24 hr 08/29/23 08/29/23 08/29/23 12:50 12:50 12:50 WBC 12.75 H RBC 3.79 L Hgb 11.3 L Hct 34.5 L MCV 91.0 MCH 29.8 MCHC 32.8 RDW Std Deviation 43.1 RDW Coeff of Zuhair 12.9 Plt Count 253 MPV 9.4 Immature Gran % (Auto) 0.5 Neut % (Auto) 59.4 Lymph % (Auto) 31.2 [place] % (Auto) 8.0 Eos % (Auto) 0.5 Baso % (Auto) 0.4 Neut # (Auto) 7.57 H Lymph # (Auto) 3.98 H [place] # (Auto) 1.02 H Eos # (Auto) 0.06 Baso # (Auto) 0.05 Immature Gran # (Auto) 0.07 PT 10.1 INR 0.9 APTT 23.1 PTT Ratio 0.8 Sodium 140 Potassium 3.8 Chloride 104 Carbon Dioxide 30 Anion Gap 6 BUN 15 Creatinine 0.47 L Est Cr Clr Drug Dosing 111.4 Est GFR ( Amer) 123.6 Est GFR (Non-Af Amer) 106.6 BUN/Creatinine Ratio 31.9 H Glucose 90 Calcium 8.9 Diagnostic Findings I personally reviewed the ultrasound and interpreted myself as well as discussed it with Dr. Lloyd the radiologist. Agree with the assessment of a small complex fluid collection that could be consistent with hematoma versus the use of Tisseel. There is no significant compression visual on ultrasound of surrounding structures US soft tissue neck CLINICAL HISTORY: Status post recent thyroidectomy. Evaluate for hematoma. COMPARISON STUDY: Thyroid ultrasound February 29, 2016. TECHNIQUE: Sonography of the thyroidectomy bed was performed. FINDINGS: There is a complex fluid collection within the left thyroidectomy bed which measures approximately 3.7 x 2 cm. This is mixed echogenicity. No additional fluid collections are identified. No enlarged nodes are identified by sonography. IMPRESSION: Complex left thyroidectomy bed fluid collection which measures approximately 3.7 x 2 cm. This favors a small hematoma. Code Status & VTE Plan VTE Prophylaxis Plan VTE Prophylaxis will be ordered: Yes PG Care Time/CCT Total # of Minutes Spent Total Time Spent with Patient: Total time spent is greater than 50% in coordination of care (as documented) at patient's floor/unit and/or counseling patient: Coding Level of Care Code None Diagnoses History of evacuation of hematoma Z98.890 History of lobectomy of thyroid Z90.09
[2023-08-29] MEDS ORDERED: MoRPHine SULFATE 4 MG/ML 1 ML CARP\\VIAL IV PRN (18:12)
[2023-08-29] MEDS ORDERED: diphenhydrAMINE Capsule 25 MG CAP PO PRN (18:12)
[2023-08-29] MEDS ORDERED: MoRPHine SULFATE 2 MG/ML CARP IV PRN (18:12)
[2023-08-29] MEDS ORDERED: ONDANSETRON INJ 2 MG/ML 2 ML VIAL IV PRN (18:12)
[2023-08-29] MEDS ORDERED: LACTATED RINGER'S 1,000 ML IV SCH (18:12)
[2023-08-29] MEDS ORDERED: ACETAMINOPHEN 325 MG TAB PO PRN (18:12)
[2023-08-29] MEDS ORDERED: oxyCODONE HCL IR 5 MG TAB (IMMEDIATE RELEASE) PO PRN ×2 (18:12)
--- NOTE | 2023-08-30 05:08 | Surgery Progress Note ---
Date of Service August 30, 2023 Assessment & Plan (1) History of lobectomy of thyroid: Plan: Status post partial thyroidectomy on 08/27/2023 with reexploration secondary to bleeding (postop day #3) Continue clear liquid diet at the present time with plans to advance further if she continues to progress well At the present time the patient does not have signs of expanding hematoma that would require surgical exploration We will continue to monitor closely Admission and Anticipated Discharge Date Admission Date: August 29, 2023 Supervising Physician Co-Signing Physician Notes Patient seen and examined, agree with above. 63-year-old female status post left thyroid lobectomy, status post washout on day of surgery for hematoma, admitted for small postoperative hematoma. She feels better today, still little fullness when swallowing, but no other issues. She would like to go home. On exam incision is clean dry and intact with Steri-Strips in place. There is no significant swelling or ecchymosis in the area. We will discharge her to home with plans to follow-up with Dr. Baez as an outpatient. Return precautions given. Subjective Patient is resting comfortably in bed. The patient does note some sore throat but she is able to swallow liquids without difficulty. She denies any difficulty breathing at this time. She denies any nausea or vomiting. Physical Exam Physical Exam: Patient's incision from thyroidectomy is clean, dry, intact. There are no signs of expanding hematoma. The patient has good phonation without any hoarseness in her voice noted. Results & Data Vital Signs (Past 12 Hours) Vital Signs Temp Pulse Resp BP Pulse Ox O2 Del Method 08/29/23 20:28 37 C 84 18 100/58 L 92 Room Air 08/29/23 17:25 36.6 C 82 18 118/72 95 Room Air PG Care Time/CCT Total # of Minutes Spent Total Time Spent with Patient: Total time spent is greater than 50% in coordination of care (as documented) at patient's floor/unit and/or counseling patient: Coding Level of Care Code 17564 Post Operative Follow-Up Diagnoses History of lobectomy of thyroid Z90.09
--- NOTE | 2023-08-31 20:22 | Discharge Summary ---
Date of Service Date of admission: 08/29/2023 Date of discharge: 08/30/2023 Admission HPI Per Admitting Provider 63-year-old female status post left hemithyroidectomy by Dr. Baez on 27 August 2023, taken back on day of surgery for symptomatic hematoma, here for swelling at her surgical site and difficulty swallowing. She was observed overnight and discharged on 28 August. Prior to discharge her surgical drain was accidentally removed. She was doing well and was discharged to home. This morning she woke and felt increasing tightness in her surgical bed along the left side of her throat as well as some difficulty swallowing. She also notices a slight change in her voice. She denies any difficulty breathing. She is not having significant pain. Since this morning she actually feels somewhat better. She is not on any blood thinners. No other issues Discharge Data Consultations 08/29/23 13:02 Consult General Surgery Stat 08/29/23 15:27 ED Decision to Admit Stat Hospital Course (1) History of lobectomy of thyroid: Date of admission: 08/29/2023 Date of discharge: 08/30/2023 This is a 63-year-old female who has a history of a left thyroid lobectomy by Dr. Demarcus Baez on 08/27/2023. Patient developed a postoperative hematoma on the same date and required reexploration. Patient was observed in the hospital initially and discharged home on 08/28/2023. The patient presented to [facility] on 08/29/2023 as she felt that she had some tightness in her surgical bed and some difficulty swallowing. Because of the symptoms she presented to the emergency department. The patient did have a soft tissue ultrasound of the neck performed that showed patient had a fluid collection measuring approximately 3.7 x 2 cm favoring a small hematoma. Because of the history noted above she was readmitted to [facility] for observation and observed overnight. She had an uneventful hospital course once she was admitted to the hospital and noted that she had less tightness and difficulty swallowing. The patient's diet was advanced which she tolerated and she was deemed stable for discharge home on 08/30/2023. Patient was instructed on appropriate wound care, diet, and activity and instructed to follow-up Dr. Baez in the surgical clinic in 1 to 2 weeks. Coding Level of Care Code 44442 IN/OBS DISCH 30 MIN/LESS Diagnoses History of lobectomy of thyroid Z90.09
== END 2023-08-30 13:10 | disposition home health service (06) ==
LOC: ED 12:35 → 3W 12:35